=== PATIENT | female | born 1945 | race Caucasian/White ===

== ENCOUNTER 2025-02-28 09:04 | Inpatient (IN) | payer MEDICARE ==
[2025-02-28] VITALS (30 sets, daily range): BP systolic 76–116; BP diastolic 44–80
[~2025-02-28] VITALS: Ht 167.6 cm; Wt 77.8 kg
[2025-02-28 09:50] LABS: BASOPHILS ABSOLUTE AUTO 0.02 K/mm3 (0.00-0.23); BASOPHILS PERCENT AUTO 0 % (0-2); EOSINOPHILS ABSOLUTE AUTO 0.08 K/mm3 (0.00-0.68); EOSINOPHILS PERCENT AUTO 1 % (0-6); Hematocrit 46.3 % (33.0-51.0); Hemoglobin 14.0 g/dL (11.5-16.0); IMMATURE GRAN ABSOLUTE AUTO 0.07 K/mm3 (0.00-0.10); IMMATURE GRAN PERCENT AUTO 1 % (0-1); LYMPHOCYTES ABSOLUTE AUTO 1.74 K/mm3 (0.84-5.20); LYMPHOCYTES PERCENT AUTO 13 % (21-46); MONOCYTES ABSOLUTE AUTO 0.89 K/mm3 (0.16-1.47); MONOCYTES PERCENT AUTO 7 % (4-13); Mean Corpuscular HGB Conc 30.2 g/dL (31.5-36.5); Mean Corpuscular Volume 85 fL (80-100); NEUTROPHILS ABSOLUTE AUTO 10.31 K/mm3 (1.96-9.15); NEUTROPHILS PERCENT AUTO 79 % (41-73); NRBC ABSOLUTE 0.00 K/mm3 (0.00-0.02); NRBC Auto 0.0 /100 WBC (0.0-0.2); Platelet Count 500 K/mm3 (150-400); RDW Coefficient Variation 22.7 % (11.7-14.2); RDW Standard Deviation 68.6 fL (35.1-46.3)
[2025-02-28] MEDS ORDERED: NS 1,000 ML IV SCH (09:50)
[2025-02-28] MEDS ORDERED: Ondansetron HCl 2 MG / ML 2ML Vial IV ONE (09:50)
[2025-02-28] MEDS ORDERED: FentaNYL Citrate 50 MCG/ML 2 ML Injection IV ONE (09:50)
[2025-02-28 10:15] LABS: Source, Urine Clean Catch
[2025-02-28 10:19] LABS: Alanine Aminotransfer (ALT/SGP 35.0 U/L (12-78); Anion Gap 13.0 mmol/L (3-11); Aspartate Aminotrans (AST/SGOT 51.0 U/L (12-37); Bilirubin, Total 0.5 mg/dL (0.1-1.0); Blood Urea Nitrogen 86.0 mg/dL (8-24); CO2, Blood 21.0 mmol/L (21-32); Calcium, Blood 8.9 mg/dL (8.5-10.1); Chloride, Blood 106.0 mmol/L (98-108); Creatinine, Blood 1.42 mg/dL (0.40-1.00); Glucose, Blood 166.0 mg/dL (70-99); Potassium, Blood 4.6 mmol/L (3.5-5.5); Sodium, Blood 135.0 mmol/L (136-145); Total Protein, Blood 8.0 g/dL (6.4-8.2)
[2025-02-28 10:21] LABS: Bilirubin, Urine Neg (Neg); Color, Urine Yellow (P-Yellow); Glucose Qualitative, Urine Neg (Neg); Ketones, Urine Neg (Neg); Leukocyte Esterase, Urine 1+ (Neg); Protein, Urine 2+ (Neg); Specific Gravity, Urine 1.010 (1.003-1.022); Urobilinogen, Urine NORM (Normal)
[2025-02-28 11:13] LABS: Albumin, Blood 2.1 g/dL (3.4-5.0); Albumin/Globulin Ratio 0.4 (0.8-1.8); Globulin, Blood 5.9 g/dL (2.2-4.0)
[2025-02-28] MEDS ORDERED: CefTRIAXone Sodium 1,000 MG in NS 100 ML IV ONE (12:00)
[2025-02-28] MEDS ORDERED: Ondansetron 4 MG SoluTab MM PRN (13:05)
[2025-02-28] MEDS ORDERED: HYDROmorphone HCl/Pf 1MG SYR IV PRN (17:10)
[2025-02-28] MEDS ORDERED: OxyCODONE 5 mg/Acetamin 325 mg TABLET PO PRN (17:10)
[2025-02-28] MEDS ORDERED: Amiodarone HCl 150 MG in NS 100 ML IV ONE (17:25)
[2025-02-28] MEDS ORDERED: Amiodarone HCl 450 MG in NS 250 ML IV SCH (18:00)
[2025-02-28] MEDS ORDERED: Piperacillin/Tazobactam Sod 4.5 GM in NS 100 ML IV SCH (18:00)
--- NOTE | 2025-02-28 18:59 | NUR ---
PT ARRIVED TO PCU 19 FROM MED FLOOR PT ARRIVED VIA BED, PT HAS LEFT SIDED WEAKNESS FROM PREVIOUS CVA, ABLE TO STATE NAME AND , THINKS SHE WAS HOME. SOME CONFUSION. AMIO DRIP STARTED PER EMAR. PT REQUIRING 2-4L OF O2 VIA NASAL CANNULA SATS KEPT ABOVE 90%. SBP 80-110'S. MIDODRINE PO TO GIVE. HRR AFIB 110'S, AFEBRILE. WILL REPORT TO ONCOMING SHIFT
--- NOTE | 2025-02-28 19:26 | NUR ---
1611: Patient arrived to room 341 via gurney from ER. Patient transferred to bed with slider sheet. Patient oriented to room, call light; call light placed within reach and bed in lowest position for safety. Patient BP after arrival 94/57 (MAP 63); at 1702 BP 91/56 (MAP 68) and HR 155. At this time call to Dr. Slade and new orders placed. Telemetry unit placed at 1712 and reading was A-fib at 125 bpm; call to Dr. Slade at 1715 with update and order obtained and placed for transfer to PCU for higher level care need. Patient c/o severe abdominal pain and medicated with Dilaudid 0.5mg with good relief noted. Report given to Lucille RN @ 3774 and patient transferred to PCU 19. All belongings sent with patient.
--- NOTE | 2025-02-28 19:32 | NUR ---
ASSUMPTION OF CARE. ASSUMED PT'S CARE AT 1900.PT WIDE AWAKE RESTING IN BED.BEDSIDE REPORT COMPLETED.PLAN OF CARE REVIEWED.PT DENIES PAIN,DENIES NAUSEA,DENIES SOB,DENIES NEEDS.AMIODARONE INFUSING AT 33.3ML PER HOUR ORDERED.PT ON 1L OXYGEN,OXYGEN SATURATION 92%.CALL LIGHT AND PT'S ITEMS WITHIN REACH.MONITORING ONGOING PER CARE PLAN.
[2025-02-28] MEDS ORDERED: GUAI200 PO (19:56)
[2025-02-28] MEDS ORDERED: LISI20 PO (19:57)
[2025-02-28] MEDS ORDERED: LIDO700A20 TOP (19:57)
[2025-02-28] MEDS ORDERED: ELIQUIS5 M2 PO (20:00)
[2025-02-28] MEDS ORDERED: AMLO5 PO (20:00)
[2025-02-28] MEDS ORDERED: GABA600 PO (20:00)
[2025-02-28] MEDS ORDERED: Calcium Carbon500 MG PO (20:01)
[2025-02-28] MEDS ORDERED: Acetaminophen650 M1 PO (20:02)
[2025-02-28] MEDS ORDERED: SYNTHROID125 MC1 PO (20:04)
[2025-02-28] MEDS ORDERED: ATOR40TA PO (20:05)
[2025-02-28] MEDS ORDERED: METO25 PO (20:05)
[2025-02-28] MEDS ORDERED: Ultram50 MG PO (20:06)
[2025-02-28] MEDS ORDERED: MELA3 PO (20:06)
[2025-02-28] MEDS ORDERED: Lactobacil 2-S.Thermo-Bifido 1 1 Cap PO SCH (21:00)
[2025-03-01] VITALS (48 sets, daily range): BP systolic 72–117; BP diastolic 45–82
--- NOTE | 2025-03-01 01:23 | NUR ---
TRANSFER PT TRANSFERRED TO ICU ROOM 5,REPORT GIVEN TO RECEIVING NURSE.PT'S BELONGINGS AND CHART SENT WITH PT.AMIODARONE INFUSION RATE CHANGED TO 16.7ML/HR ORDERED.ZOSYN INFUSING ORDERED.PCU CHARGE NURSE TO NOTIFY SPOUSE.
--- NOTE | 2025-03-01 01:36 | NUR ---
ASSUMPTION OF CARE/ TRANSFER FROM PCU 19 TO ICU 5: PT ARRIVED TO UNIT AT 0110. PT BEING TRANSFERRED TO ICU DUE HYPOTENSION AND REQUIRING LEVOPHED. PT ARRIVES A&O TO SELF, LOCATION AND YEAR. PT NC @ 4 LPM, LUNGS CLEAR T/O AND DENIES SOB AT THIS TIME. PT AFIB ON MONITOR WITH HR 90-110, BP 93/59, MAP 68. LEVO HAS NOT BEEN STARTED. AMIO GTT @ 0.5 MG/HR. ZOSYN INFUSING. PIV TO LAC, LFA AND RFA THAT ARE ALL PATENT AND DRAWING BACK BLOOD. PT HAS SMALL WOUND TO COCCYX THAT IS NOT BLANCHABLE AND SKIN BROKEN. PT HAS PUREWICK AND ATTENDS IN PLACE. 2ND RN SKIN CHECK COMPLETED WITH LINDSAY REAL UPON TRANSFER TO UNIT. PT'S TO BE NOTIFIED BY THIS RN ABOUT TRANSFER TO ICU 5. CALL LIGHT IN REACH, BED LOWERED.
[2025-03-01 04:10] LABS: BASOPHILS ABSOLUTE AUTO 0.05 K/mm3 (0.00-0.23); BASOPHILS PERCENT AUTO 1 % (0-2); EOSINOPHILS ABSOLUTE AUTO 0.28 K/mm3 (0.00-0.68); EOSINOPHILS PERCENT AUTO 4 % (0-6); Hematocrit 36.4 % (33.0-51.0); Hemoglobin 10.9 g/dL (11.5-16.0); IMMATURE GRAN ABSOLUTE AUTO 0.05 K/mm3 (0.00-0.10); IMMATURE GRAN PERCENT AUTO 1 % (0-1); LYMPHOCYTES ABSOLUTE AUTO 1.09 K/mm3 (0.84-5.20); LYMPHOCYTES PERCENT AUTO 14 % (21-46); MONOCYTES ABSOLUTE AUTO 0.71 K/mm3 (0.16-1.47); MONOCYTES PERCENT AUTO 9 % (4-13); Mean Corpuscular HGB Conc 29.9 g/dL (31.5-36.5); Mean Corpuscular Volume 88 fL (80-100); NEUTROPHILS ABSOLUTE AUTO 5.45 K/mm3 (1.96-9.15); NEUTROPHILS PERCENT AUTO 71 % (41-73); NRBC ABSOLUTE 0.00 K/mm3 (0.00-0.02); NRBC Auto 0.0 /100 WBC (0.0-0.2); Platelet Count 337 K/mm3 (150-400); RDW Coefficient Variation 22.4 % (11.7-14.2); RDW Standard Deviation 72.4 fL (35.1-46.3)
[2025-03-01 04:43] LABS: Alanine Aminotransfer (ALT/SGP 22.0 U/L (12-78); Albumin, Blood 1.6 g/dL (3.4-5.0); Albumin/Globulin Ratio 0.4 (0.8-1.8); Anion Gap 11.0 mmol/L (3-11); Aspartate Aminotrans (AST/SGOT 31.0 U/L (12-37); Bilirubin, Total 0.3 mg/dL (0.1-1.0); Blood Urea Nitrogen 51.0 mg/dL (8-24); CO2, Blood 17.0 mmol/L (21-32); Calcium, Blood 6.9 mg/dL (8.5-10.1); Chloride, Blood 117.0 mmol/L (98-108); Creatinine, Blood 0.85 mg/dL (0.40-1.00); Globulin, Blood 4.0 g/dL (2.2-4.0); Glucose, Blood 88.0 mg/dL (70-99); Potassium, Blood 3.8 mmol/L (3.5-5.5); Sodium, Blood 141.0 mmol/L (136-145); Total Protein, Blood 5.6 g/dL (6.4-8.2)
--- NOTE | 2025-03-01 05:22 | NUR ---
SHIFT SUMMARY: NO ACUTE CHANGES SINCE ARRIVAL TO UNIT. PT REMAINS A&O TO SELF, YEAR AND THAT SHE IS IN A HOSPITAL. SHE IS FOLLOWING DIRECTIONS. SHE IS ON NC @ 4 LPM, INTERMITTEN SPO2 READING 90'S. PT CONTINUES ON AMIO GTT @ 0.5; AFIB WITH HR 80-100'S, AT ONE POINT HR DROPPED DOWN TO THE 60'S BUT DID NOT SUSTAIN. BP REMAINS STABLE WITH MAP 65<; LEVO HAS NOT BEEN STARTED. PUREWICK AND ATTENDS IN PLACE; 300 MLS URINE OUTPUT THIS SHIFT. BED LOWERED, CALL LIGHT IN REACH, WILL REPORT OFF TO ONCOMING RN.
[2025-03-01 08:55] LABS: IMMATURE RETIC FRACTION 21.6 % (2.3-16.0); RETIC HGB EQUIVALENT 24.9 pg (28.20-36.60); RETICULOCYTE ABSOLUTE 0.0544 M/mm3 (0.0200-0.1100); RETICULOCYTE COUNT PERCENT 1.07 % (0.50-2.50)
[2025-03-01] MEDS ORDERED: Enoxaparin 40 MG/0.4 ML SYR SC SCH (09:00)
[2025-03-01 10:11] LABS: Ferritin, Serum 535.0 ng/mL (8-252); Total Iron Binding Capacity 229.0 ug/dL (250-450)
[2025-03-01 10:18] LABS: Lactate Dehydrogenase (Ld),Bld 288.0 U/L (100-240)
[2025-03-01] MEDS ORDERED: CefTRIAXone Sodium 1,000 MG in NS 100 ML IV SCH (12:00)
[2025-03-01 16:42] LABS: Alanine Aminotransfer (ALT/SGP 26.0 U/L (12-78); Albumin, Blood 2.0 g/dL (3.4-5.0); Albumin/Globulin Ratio 0.4 (0.8-1.8); Anion Gap 8.0 mmol/L (3-11); Aspartate Aminotrans (AST/SGOT 27.0 U/L (12-37); Bilirubin, Total 0.2 mg/dL (0.1-1.0); Blood Urea Nitrogen 45.0 mg/dL (8-24); CO2, Blood 24.0 mmol/L (21-32); Calcium, Blood 8.7 mg/dL (8.5-10.1); Chloride, Blood 113.0 mmol/L (98-108); Creatinine, Blood 1.04 mg/dL (0.40-1.00); Globulin, Blood 4.6 g/dL (2.2-4.0); Glucose, Blood 116.0 mg/dL (70-99); Magnesium, Blood 2.3 mg/dL (1.6-2.4); Phosphorus, Blood 2.4 mg/dL (2.5-4.9); Potassium, Blood 4.1 mmol/L (3.5-5.5); Sodium, Blood 141.0 mmol/L (136-145); Total Protein, Blood 6.6 g/dL (6.4-8.2)
--- NOTE | 2025-03-01 20:53 | NUR ---
ASSUMPTION OF CARE: ASSUMED CARE OF PT AT 1900. PT ALERT AND ORIENTED X3-4. FOLLOWS SOME DIRECTION. WEAKNESS NOTED T/O WITH DEFICITS ON R/L SIDE FROM PRIOR CVA. ABLE TO MOVE RIGHT ARM AT TIMES. LEGS CONTRACTURED. ON RA WITH SPO2 MID 90'S. DENIES SOB. DENIES PAIN AT TIME OF ASSESSMENT. 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 SBP 114. DENIES CP. PUREWICK IN PLACE, DRAINING TO SUCTION. PIVS INTACT AND SALINE LOCKED. NO BM YET. PT AT THE BEDSIDE UPON ARRIVAL, HAS SINCE GONE HOME FOR THE NIGHT. TOLERATING PO INTAKE. FREQUENTLY HOLLERS "NURSE" WHEN NOT IN THE ROOM. BED LOCKED, CALL LIGHT IN REACH.
[2025-03-02] VITALS (15 sets, daily range): BP systolic 95–145; BP diastolic 51–77
[2025-03-02 03:55] LABS: BASOPHILS ABSOLUTE AUTO 0.04 K/mm3 (0.00-0.23); BASOPHILS PERCENT AUTO 1 % (0-2); EOSINOPHILS ABSOLUTE AUTO 0.47 K/mm3 (0.00-0.68); EOSINOPHILS PERCENT AUTO 7 % (0-6); Hematocrit 36.7 % (33.0-51.0); Hemoglobin 11.0 g/dL (11.5-16.0); IMMATURE GRAN ABSOLUTE AUTO 0.07 K/mm3 (0.00-0.10); IMMATURE GRAN PERCENT AUTO 1 % (0-1); LYMPHOCYTES ABSOLUTE AUTO 2.31 K/mm3 (0.84-5.20); LYMPHOCYTES PERCENT AUTO 33 % (21-46); MONOCYTES ABSOLUTE AUTO 0.69 K/mm3 (0.16-1.47); MONOCYTES PERCENT AUTO 10 % (4-13); Mean Corpuscular HGB Conc 30.0 g/dL (31.5-36.5); Mean Corpuscular Volume 87 fL (80-100); NEUTROPHILS ABSOLUTE AUTO 3.39 K/mm3 (1.96-9.15); NEUTROPHILS PERCENT AUTO 49 % (41-73); NRBC ABSOLUTE 0.00 K/mm3 (0.00-0.02); NRBC Auto 0.0 /100 WBC (0.0-0.2); Platelet Count 379 K/mm3 (150-400); RDW Coefficient Variation 22.5 % (11.7-14.2); RDW Standard Deviation 71.1 fL (35.1-46.3)
[2025-03-02 04:10] LABS: Alanine Aminotransfer (ALT/SGP 21.0 U/L (12-78); Albumin, Blood 1.9 g/dL (3.4-5.0); Albumin/Globulin Ratio 0.5 (0.8-1.8); Anion Gap 9.0 mmol/L (3-11); Aspartate Aminotrans (AST/SGOT 21.0 U/L (12-37); Bilirubin, Total 0.3 mg/dL (0.1-1.0); Blood Urea Nitrogen 39.0 mg/dL (8-24); CO2, Blood 23.0 mmol/L (21-32); Calcium, Blood 8.2 mg/dL (8.5-10.1); Chloride, Blood 114.0 mmol/L (98-108); Creatinine, Blood 1.01 mg/dL (0.40-1.00); Globulin, Blood 4.1 g/dL (2.2-4.0); Glucose, Blood 100.0 mg/dL (70-99); Magnesium, Blood 2.1 mg/dL (1.6-2.4); Phosphorus, Blood 2.3 mg/dL (2.5-4.9); Potassium, Blood 4.3 mmol/L (3.5-5.5); Sodium, Blood 142.0 mmol/L (136-145); Total Protein, Blood 6.0 g/dL (6.4-8.2)
--- NOTE | 2025-03-02 06:20 | NUR ---
SHIFT SUMMARY: PT ABLE TO REST MINIMALLY T/O THE NIGHT. FREQUENTLY SHOUTS "NURSE" T/O THE NIGHT AND CRIES. WHEN ASKED WHAT IS WRONG SHE STATES "I DO NOT KNOW". PT HAD ONE EPISODE OF EMESIS THIS AM. C/O BELLY PAIN OFF AND ON. MEDICATED PER EMAR. NEURO STATUS REMAINS UNCHANGED. RESP STATUS REMAINS UNCHANGED. PT BETWEEN RA/2L WHILE SLEEPING. PT HAVING FREQUENT EPISODES OF BRADYCARDIA THIS SHIFT WITH LOW 38 SEEN ON THE MONITOR. SBP SOFT 90-100'S. MAP >65. PIV TO LAC AND LFA PATENT. PULLED PIV TO RFA THIS SHIFT. ABLE TO TOLERATE SIPS AND CHIPS THIS SHIFT BEFORE EMESIS. PUREWICK IN PLACE, DRAINING TO SUCTION. NO BM THIS SHIFT. BED LOCKED.
[2025-03-02] MEDS ORDERED: Sodium Phosphate 15 MM in Dextrose 5% 500 ML IV STA (08:14)
[2025-03-02] MEDS ORDERED: Iron Dextran 50 MG / ML 2ML Vial IV ONE (08:25)
[2025-03-02] MEDS ORDERED: Iron Dextran 975 MG in NS 250 ML IV ONE (10:00)
[2025-03-02] MEDS ORDERED: Polyethylene Glycol 3350 17 gm PO ONE (13:00)
[2025-03-02] MEDS ORDERED: Polyethylene Glycol 3350 17 gm PO PRN (13:00)
--- NOTE | 2025-03-02 13:45 | NUR ---
Upon receiving a request for spiritual care, I visited the patient. She tells me about the massive stroke that she had in december and the deep need that she has to have family present with her. She tells me that her had to be brought to the ER todaybecause of possible liver issues and that her dtr was with her . She explains that she also has two sons, one with whom she gets along with and talks to very often and another son with whom she has conflict with. She tells me that she has a strong LDS yazmin and that she finds comfort and strength from her yazmin and the people from the [employer] that provide love and support. I tell her that I will attempt to have one of the bishops or elders come and provide a blessing for her. I attempted to contact one of the elders while I was with the patient but he did not immediately reply. I will reach out to the protestant again if no one comes to see her soon. Palliative care RN Britney came to visit the patient so I step out and allow them time to talk. I will continue to remain available to patient and family. elders while
[2025-03-02] MEDS ORDERED: Furosemide 10 MG / ML 2ML Vial IV SCH (14:00)
[2025-03-02] MEDS ORDERED: Gabapentin 250 MG/5 ML ORAL SYRINGE PO SCH (14:00)
--- NOTE | 2025-03-02 16:44 | NUR ---
END OF SHIFT NOTE: NO ACUTE EVENTS THIS SHIFT. PT ALERT, ORIENTED X3-4; FORGETFUL & REQUIRES FREQUENT REMINDERS & REDIRECTION. FLAT AFFECT, UNINTERESTED IN MOST CARE. VSS. HR 40-70'S, SINUS RHYTHM ON MONITOR. SBP 90-130'S, MAP >65. SPO2 >90% ON 2L O2 VIA NC. RESPIRATIONS EVEN & UNLABORED. AFEBRILE. PG PLACED TO MARÍA THIS SHIFT, SALINE LOCKED. PT VOIDING W/ PUREWICK IN PLACE. NO BM'S, BOWEL CARE INITIATED THIS SHIFT. PT FREQUENTLY C/O NAUSEA BUT IMMEDIATELY REQUESTS "HARD FOOD", "CANDY", OR "MILKSHAKE". NO EPISODES OF VOMITING THIS SHIFT. SPEECH THERAPY EVAL COMPLETED, SOFT & BITE SIZE DIET IN PLACE. MEDS CRUSHED IN PUREE. PER [facility] RECORDS, PT WAS DISCHARGED ON PUREE DIET, THIN LIQUIDS, MEDS CRUSHED IN PUREE. PT ABLE TO WORK W/ PHYSICAL/OCCUPATIONAL THERAPY THIS AFTERNOON, ABLE TO STAND & PIVOT W/ GAIT BELT & MAX ASSIST TO CHAIR. UP IN CHAIR FOR AFTERNOON. PT'S SPOUSE & DAUGHTER AT BEDSIDE THIS AM, SPOUSE TO BE EVALUATED IN EMERGENCY DEPARTMENT TODAY; PT VOICES SIGNIFICANT ANXIETY. SPIRITUAL CARE AT BEDSIDE TODAY FOR SUPPORT, [facility] CONTACTED W/ PLANS TO SEND ADDITIONAL SUPPORT FOR PT. PT INTERMITTENTLY REFUSING TO PARTICIPATE IN CARE; DISCUSSED GOALS OF CARE, HOSPICE, AND PLANS MOVING FORWARD. PT TO DISCUSS GOALS W/ FAMILY BUT STATES SHE IS VERY INTERESTED IN "JUST BEING COMFORTABLE" AND "GOING HOME TO BE WITH HIM ()". PT SITTING UP IN CHAIR AT THIS TIME AWAITING DINNER. CALL LIGHT IN REACH.
[2025-03-03] VITALS (7 sets, daily range): BP systolic 132–146; BP diastolic 67–89
[2025-03-03 07:18] LABS: BASOPHILS ABSOLUTE AUTO 0.05 K/mm3 (0.00-0.23); BASOPHILS PERCENT AUTO 1 % (0-2); EOSINOPHILS ABSOLUTE AUTO 0.38 K/mm3 (0.00-0.68); EOSINOPHILS PERCENT AUTO 5 % (0-6); Hematocrit 39.3 % (33.0-51.0); Hemoglobin 11.7 g/dL (11.5-16.0); IMMATURE GRAN ABSOLUTE AUTO 0.04 K/mm3 (0.00-0.10); IMMATURE GRAN PERCENT AUTO 1 % (0-1); LYMPHOCYTES ABSOLUTE AUTO 2.20 K/mm3 (0.84-5.20); LYMPHOCYTES PERCENT AUTO 28 % (21-46); MONOCYTES ABSOLUTE AUTO 0.67 K/mm3 (0.16-1.47); MONOCYTES PERCENT AUTO 9 % (4-13); Mean Corpuscular HGB Conc 29.8 g/dL (31.5-36.5); Mean Corpuscular Volume 87 fL (80-100); NEUTROPHILS ABSOLUTE AUTO 4.41 K/mm3 (1.96-9.15); NEUTROPHILS PERCENT AUTO 57 % (41-73); NRBC ABSOLUTE 0.00 K/mm3 (0.00-0.02); NRBC Auto 0.0 /100 WBC (0.0-0.2); Platelet Count 412 K/mm3 (150-400); RDW Coefficient Variation 22.4 % (11.7-14.2); RDW Standard Deviation 71.5 fL (35.1-46.3)
--- NOTE | 2025-03-03 07:25 | NUR ---
SHIFT SUMMARY; AFTER TRANSFER FROM ICU, PATIENT NOT ABLE TO HELP MUCH WITH REPOSITIONING. TELE SB 56 WITH AVB. IV INFILTRATED WITH MEDS HUNG. ABLE TO SIP LIQUIDS. O2/1L/NC.
[2025-03-03 07:38] LABS: Alanine Aminotransfer (ALT/SGP 18.0 U/L (12-78); Albumin, Blood 2.2 g/dL (3.4-5.0); Albumin/Globulin Ratio 0.5 (0.8-1.8); Anion Gap 9.0 mmol/L (3-11); Aspartate Aminotrans (AST/SGOT 24.0 U/L (12-37); Bilirubin, Total 0.2 mg/dL (0.1-1.0); Blood Urea Nitrogen 20.0 mg/dL (8-24); CO2, Blood 25.0 mmol/L (21-32); Calcium, Blood 7.9 mg/dL (8.5-10.1); Chloride, Blood 112.0 mmol/L (98-108); Creatinine, Blood 0.85 mg/dL (0.40-1.00); Globulin, Blood 4.4 g/dL (2.2-4.0); Glucose, Blood 97.0 mg/dL (70-99); Magnesium, Blood 1.8 mg/dL (1.6-2.4); Phosphorus, Blood 2.4 mg/dL (2.5-4.9); Potassium, Blood 3.8 mmol/L (3.5-5.5); Sodium, Blood 142.0 mmol/L (136-145); Total Protein, Blood 6.6 g/dL (6.4-8.2)
[2025-03-03] MEDS ORDERED: Potassium Phosphate Dibasic 30 MM in Dextrose 5% 500 ML IV STA (10:19)
[2025-03-03] MEDS ORDERED: Polyethylene Glycol 3350 17 gm PO SCH (11:00)
[2025-03-03] MEDS ORDERED: Gabapentin 250 MG/5 ML ORAL SYRINGE PO SCH (11:12)
--- NOTE | 2025-03-03 18:30 | NUR ---
PATIENT RESTED TODAY, UP TO CHAIR X1 AND JENISE BACK TO BED. ABLE TO VERBALIZE NEEDS.
[2025-03-04 04:30] VITALS: BP 143/75
--- NOTE | 2025-03-04 05:51 | NUR ---
NO ACUTE EVENTS OVER NIGHT. ADDED PREVENTATIVE MEPILEX TO EACH HEEL. PATIENT HAS REDDNESS IN JOSE MIGUEL AREA, ADDED BARRIER CREAM FOR COMFORT. VITALS STABLE, BED IN LOWEST AND LOCKED POSITION WITH ALL BELONGINS WELL CALL CULVER WITHIN REACH.
[2025-03-04 06:23] LABS: Albumin, Blood 2.2 g/dL (3.4-5.0); Anion Gap 8 mmol/L (3-11); Blood Urea Nitrogen 13 mg/dL (8-24); CO2, Blood 27 mmol/L (21-32); Calcium, Blood 7.8 mg/dL (8.5-10.1); Chloride, Blood 108 mmol/L (98-108); Creatinine, Blood 0.86 mg/dL (0.40-1.00); Glucose, Blood 88 mg/dL (70-99); Phosphorus, Blood 2.3 mg/dL (2.5-4.9); Potassium, Blood 4.1 mmol/L (3.5-5.5); Sodium, Blood 139 mmol/L (136-145)
[2025-03-04 07:59] VITALS: BP 136/71
[2025-03-04] MEDS ORDERED: Lidocaine 4% 1 Patch TOP SCH (09:00)
--- NOTE | 2025-03-04 10:35 | NUR ---
Spiritual care visit conducted. I had a lengthy visit with the patient. She shares about her tearful moments centered around family activities and events that she is unable to attend. I provided grief support and guidance to speak to the loss and limitations due to her stroke. We also discusshow she forms the narrative of her struggle and what she choses to focus on. I provided therapeutic listening and gentle credit support counselor as we explored sources of meaning and silvia. She also confides in me about her concerns about her souse and his health, stress and need for support. I will continue to make myself available to Brock and Katrin as they attempt to navigate the complexities of the medical, familial and personal issues of stress.
[2025-03-04 12:35] VITALS: BP 139/70
--- NOTE | 2025-03-04 15:45 | NUR ---
REPORT GIVEN TO MONY AT [facility]. NOTED TO MONY PATIENTS GROIN AREA AND THE SWELLING AND REDNESS, THE AREA ON LEFT FOREARM THAT IS RED, WARM AND HARD. MD ASSESSED THIS AM. PATIENT DRESSED AND READY FOR TRANSPORT.
--- NOTE | 2025-03-04 15:47 | NUR ---
PATIENTS SPOUSE HAD 3 MEDICATIONS FROM HOME THAT NEEDED DISPOSED OF THAT WERE PRESCRIBED FOR THE PATIENT BUT NOT REFRIDGERATED. THIS RN PUT MEDICATION (GABAPENTIN) IN SHARPS CONTAINER.
== END 2025-03-04 16:28 | DRG 871 ==
LOC: ER 09:04 → ERHOLD 09:05 → MEDS 16:08 → ICUE 16:25 → PCU 18:35 → ICUE 03-01 01:02 → MEDS 03-01 13:25 → ICUE 03-01 13:25 → MEDS 03-01 13:25 → ICUE 03-01 13:36 → MEDS 03-03 03:00
PROVIDERS: Internal Medicine; Physician Assistant; ADMIT Family Medicine
PROC: 3E03329 Introduction of Other Anti-infective into Peripheral Vein, Percutaneous Approach (ICD-10-PCS; principal; 2025-03-01)
PROC: 3E033XZ Introduction of Vasopressor into Peripheral Vein, Percutaneous Approach (ICD-10-PCS; 2025-03-01)
DX: A41.51 Sepsis due to Escherichia coli [E. coli] (principal); G93.41 Metabolic encephalopathy; J96.01 Acute respiratory failure with hypoxia; I50.31 Acute diastolic (congestive) heart failure; R65.21 Severe sepsis with septic shock; N17.9 Acute kidney failure, unspecified; N39.0 Urinary tract infection, site not specified; E87.1 Hypo-osmolality and hyponatremia; I69.354 Hemiplegia and hemiparesis following cerebral infarction affecting left non-dominant side; I13.0 Hypertensive heart and chronic kidney disease with heart failure and stage 1 through stage 4 chronic kidney disease, or unspecified chronic kidney disease; A41.81 Sepsis due to Enterococcus; E86.0 Dehydration; K44.9 Diaphragmatic hernia without obstruction or gangrene; K57.30 Diverticulosis of large intestine without perforation or abscess without bleeding; N18.2 Chronic kidney disease, stage 2 (mild); D63.1 Anemia in chronic kidney disease; D75.839 Thrombocytosis, unspecified; E03.9 Hypothyroidism, unspecified; L89.152 Pressure ulcer of sacral region, stage 2; G62.9 Polyneuropathy, unspecified; I27.20 Pulmonary hypertension, unspecified; D58.1 Hereditary elliptocytosis; R90.82 White matter disease, unspecified; E83.39 Other disorders of phosphorus metabolism; D50.9 Iron deficiency anemia, unspecified; G89.29 Other chronic pain; G47.00 Insomnia, unspecified; K59.00 Constipation, unspecified; I48.0 Paroxysmal atrial fibrillation; E88.09 Other disorders of plasma-protein metabolism, not elsewhere classified
CPT/HCPCS: 36415; 70450; 71045; 74018; 74177; 80053; 80069; 81001; 82330; 82607; 82728; 82746; 83540; 83550; 83605; 83615; 83690; 83735; 83880; 84100; 85025; 85045; 87040; 87077; 87086; 87186; 92526; 92610; 93005; 93010; 93306; 93308; 93321; 94762; 96361; 96365-59; 96366; 96367; 96375; 96376; 97110; 97112; 97162; 97166; 97530; 99285-25; A6590; A9270; C1751; G0378; J0282; J0612; J0696; J1171; J1750; J1938; J2405; J2543; J3010; J7030; J7050; J7060; J7120; P9612; Q9967

== ENCOUNTER → 2025-05-12 | Outpatient (CLI) | payer MEDICARE ==
[~2025-05-12] MED LIST: AMLO5 PO; ATOR40TA PO; Acetaminophen650 M1 PO; Calcium Carbon500 MG PO; ELIQUIS5 M2 PO; GABA600 PO; GUAI200 PO; LIDO700A20 TOP; LISI20 PO; MELA3 PO; METO25 PO; SYNTHROID125 MC1 PO; Ultram50 MG PO
[2025-05-12 11:42] LABS: Source, Urine Foley catheter
[2025-05-12 13:17] LABS: Bilirubin, Urine Neg (Neg); Color, Urine Yellow (P-Yellow); Glucose Qualitative, Urine 3+ (Neg); Ketones, Urine Neg (Neg); Leukocyte Esterase, Urine 3+ (Neg); Protein, Urine 2+ (Neg); Specific Gravity, Urine 1.010 (1.003-1.022); Urobilinogen, Urine NORM (Normal)
== END ==
LOC: LAB SHORT 11:40 → LAB 11:40
PROVIDERS: Family Medicine
DX: N39.0 Urinary tract infection, site not specified (principal); R30.0 Dysuria
CPT/HCPCS: 81001; 87077; 87086; 87186